=== PATIENT | female | born 1955 | race Caucasian/White ===

== ENCOUNTER → 2018-05-17 | Outpatient (RCR) | payer BC ==
[~2018-05-17] MED LIST: Z CIPRO; Z.0.ATIVAN2 MG; Z.0.DIFLUNISAL500 MG; Z.0.NEXIUM40 M1; amoxicillin
== END ==
LOC: PT 04-20 07:17
PROVIDERS: ATTEND Orthopaedic Surgery
DX: M75.41 Impingement syndrome of right shoulder (principal); M62.81 Muscle weakness (generalized); M25.511 Pain in right shoulder; M25.611 Stiffness of right shoulder, not elsewhere classified
CPT/HCPCS: 97139

== ENCOUNTER 2018-05-24 09:00 | Outpatient (RCR) | payer BC | END 2018-06-17 | LOC: PT 09:00 | PROVIDERS: ATTEND Orthopaedic Surgery | DX: M75.41 Impingement syndrome of right shoulder (principal); M62.81 Muscle weakness (generalized); M25.511 Pain in right shoulder; M25.611 Stiffness of right shoulder, not elsewhere classified ==

== ENCOUNTER → 2021-03-04 | Outpatient (CLI) | payer MEDICARE | LOC: MRI 08:45 | PROVIDERS: ATTEND Family Medicine | DX: Z12.31 Encounter for screening mammogram for malignant neoplasm of breast (principal); R26.89 Other abnormalities of gait and mobility | CPT/HCPCS: 70551; 77067 ==

== ENCOUNTER → 2021-03-18 | Outpatient (CLI) | payer MEDICARE | LOC: MAMMO 08:46 | PROVIDERS: ATTEND Family Medicine | DX: R92.8 Other abnormal and inconclusive findings on diagnostic imaging of breast (principal) ==

== ENCOUNTER → 2021-04-16 | Outpatient (CLI) | payer MEDICARE | LOC: MRI 07:30 | PROVIDERS: ATTEND Student in an Organized Health Care Education/Training Program | DX: M54.16 Radiculopathy, lumbar region (principal); R26.9 Unspecified abnormalities of gait and mobility | CPT/HCPCS: 72148 ==

== ENCOUNTER → 2022-01-14 | Day surgery (SDC) | payer MEDICARE ==
[2022-01-12 08:40] LABS: BASOPHILS # (AUTO) 0.1 (0.0-0.1); BASOPHILS % 0.7 % (0.0-1.0); EOSINOPHILS # (AUTO) 0.1 (0.0-0.4); EOSINOPHILS % 1.3 % (0.0-6.0); HEMATOCRIT 42.7 % (34.2-44.1); HEMOGLOBIN 13.4 g/dL (12.0-16.0); LYMPHOCYTES # (AUTO) 1.5 (1.0-3.2); LYMPHOCYTES % 19.9 % (18.0-39.1); MEAN CORPUSCULAR HEMOGLOBIN 29.3 pg (28-32); MEAN CORPUSCULAR HGB CONC 31.4 g/dL (31-35); MEAN CORPUSCULAR VOLUME 93.2 fL (81-99); MONOCYTES # (AUTO) 0.5 (0.2-0.8); MONOCYTES % 6.3 % (4.4-11.3); NEUTROPHILS # (AUTO) 5.5 (2.1-6.9); NEUTROPHILS % 71.5 % (38.7-80.0); PLATELET COUNT 206 x10e3/uL (140-360); RED BLOOD COUNT 4.58 x10e6/uL (3.6-5.1); RED CELL DISTRIBUTION WIDTH 14.9 % (11.7-14.4)
[~2022-01-14] MED LIST changes: +ACETAMINOPHEN 1000 MG/100 ML 100 ML IV ONE; +BUPIVACAINE 0.25% 30ML SDV ONE; +DEXAMETHASONE SOD PHOS INJ 4 MG/ML SDV IV ONE; +DITROPAN XL5 MG PO; +EPINEPHRINE HCL 1:1000 1ML 1 MG/ML AMP ONE; +FENTANYL CITRATE/PF 100MCG/2 ML INJ ONE; +ISOFLURANE INHAL SOLN 250 ML BTL INH ONE; +LIDOCAINE HCL 1% LOCAL INJ 20 ML VIAL ONE; +LIDOCAINE HCL 2% LOCAL INJ 5 ML SDV VIAL INJ ONE; +NEURONTIN300 MG PO; +ONDANSETRON HCL INJ 2MG/ML 2ML 2 MG/ML VIAL IV ONE; +POVIDONE IODINE 0.05% 0.05 % ML PO ONE; +PROPOFOL IV EMULSION 10 MG/ML 20 ML VIAL IV ONE
[2022-01-14 12:00] VITALS: BP 155/93
== END | disposition home or self-care (01) ==
LOC: OR 06:47
PROVIDERS: ATTEND Orthopaedic Surgery
DX: S83.232A Complex tear of medial meniscus, current injury, left knee, initial encounter (principal); D75.89 Other specified diseases of blood and blood-forming organs; S83.282A Other tear of lateral meniscus, current injury, left knee, initial encounter; M22.42 Chondromalacia patellae, left knee; M67.52 Plica syndrome, left knee; K21.9 Gastro-esophageal reflux disease without esophagitis; F17.200 Nicotine dependence, unspecified, uncomplicated; X58.XXXA Exposure to other specified factors, initial encounter; Z88.2 Allergy status to sulfonamides; Z01.810 Encounter for preprocedural cardiovascular examination; Z01.812 Encounter for preprocedural laboratory examination; Z01.818 Encounter for other preprocedural examination
CPT/HCPCS: 27599; 29882; 36415; 71046; 85025; 93005; C1713 ×3; C1729; J0131; J0171; J0690; J1100; J2001 ×2; J2405; J2704; J3010; 76000

== ENCOUNTER → 2022-04-26 | Outpatient (CLI) | payer MEDICARE ==
[~2022-04-26] MED LIST changes: -ACETAMINOPHEN 1000 MG/100 ML 100 ML IV ONE; -BUPIVACAINE 0.25% 30ML SDV ONE; +CEFUROXIME250 MG PO; -DEXAMETHASONE SOD PHOS INJ 4 MG/ML SDV IV ONE; -EPINEPHRINE HCL 1:1000 1ML 1 MG/ML AMP ONE; -FENTANYL CITRATE/PF 100MCG/2 ML INJ ONE; -ISOFLURANE INHAL SOLN 250 ML BTL INH ONE; -LIDOCAINE HCL 1% LOCAL INJ 20 ML VIAL ONE; -LIDOCAINE HCL 2% LOCAL INJ 5 ML SDV VIAL INJ ONE; -ONDANSETRON HCL INJ 2MG/ML 2ML 2 MG/ML VIAL IV ONE; +ONDANSETRON ODT4 MG PO; -POVIDONE IODINE 0.05% 0.05 % ML PO ONE; -PROPOFOL IV EMULSION 10 MG/ML 20 ML VIAL IV ONE
== END ==
LOC: MAMMO 13:08
PROVIDERS: ATTEND Family Medicine
DX: Z12.31 Encounter for screening mammogram for malignant neoplasm of breast (principal)
CPT/HCPCS: 77067

== ENCOUNTER → 2022-06-09 | Outpatient (CLI) | payer MEDICARE ==
[~2022-06-09] MED LIST changes: +IOPAMIDOL 370 MG/ML 100 ML INFUS..BTL INJ ONE; +METOPROLOL TARTRATE 25 MG TAB ONE; +METOPROLOL TARTRATE INJ 1 MG/ML VIAL ONE; +NITROGLYCERIN 0.4 MG SUBL ONE; +SODIUM CHLORIDE 0.9% 100 ML ONE
[2022-06-09 10:40] LABS: CREATININE, SERUM 0.67 mg/dL (0.57-1.11)
== END ==
LOC: CT 09:39
PROVIDERS: ATTEND Internal Medicine Cardiovascular Disease
DX: I20.8 Other forms of angina pectoris (principal)
CPT/HCPCS: 36415; 75574; 82565; 84520; J7050; Q9967